=== PATIENT | male | born 1950 | race Caucasian/White ===

== ENCOUNTER → 2017-05-11 | Outpatient (CLI) | payer OTHER ==
[~2017-05-11] MED LIST: CALC500C70 PO; MULT-506 PO; OMEP20TA PO
[2017-05-11 13:32] LABS: BASO % 1.1 %; BASO ABS # 0.06 K/uL (0-0.2); EOS % 6.5 %; EOS ABS # 0.37 K/uL (0-0.5); HEMATOCRIT 41.6 % (42-52); HEMOGLOBIN 14.7 g/dL (14.0-18.0); LYMPH % 25.7 %; LYMPH ABS # 1.45 K/uL (1.2-3.4); MEAN CELL VOLUME 91.6 fL (80-100); MEAN CORPUSCULAR HEMOGLOBIN 32.4 pg (25-34); MEAN CORPUSCULAR HGB CONC 35.3 g/dl (32-36); MEAN PLATELET VOLUME 9.7 fL (7.4-10.4); MONO % 10.6 %; NEUT % 56.1 %; NEUT ABS # 3.17 K/uL (1.4-6.5); PLATELET COUNT 199 K/uL (130-400); RED CELL DISTRIBUTION WIDTH CV 13.2 % (11.5-14.5); RED CELL DISTRIBUTION WIDTH SD 43.7 fL (36.4-46.3); WHITE BLOOD COUNT 5.65 K/uL (4.8-10.8)
[2017-05-11 14:03] LABS: ALT/SGPT 32 U/L (12-78); BLOOD UREA NITROGEN 16 mg/dl (7-18); CALCIUM 8.8 mg/dl (8.5-10.1); CARBON DIOXIDE 28 mmol/L (21-32); CHOLESTEROL 182 mg/dl (0-200); CREATININE 0.85 mg/dl (0.60-1.40); GLUCOSE 90 mg/dl (70-99); SODIUM 140 mmol/L (136-145)
[2017-05-11 14:07] LABS: ALKALINE PHOSPHATASE 101 U/L (45-117); AST/SGOT 23 U/L (15-37); LDL CHOLESTEROL CALCULATED 105 mg/dl; TOTAL PROTEIN 7.2 gm/dl (6.4-8.2)
== END | disposition home or self-care (01) ==
LOC: C.LABSPEC 13:19
PROVIDERS: ATTEND Family Medicine
DX: E78.2 Mixed hyperlipidemia (principal); K22.70 Barrett's esophagus without dysplasia; R53.83 Other fatigue; M50.33 Other cervical disc degeneration, cervicothoracic region; Z86.19 Personal history of other infectious and parasitic diseases

== ENCOUNTER 2021-08-08 05:04 | Observation (INO) ==
--- NOTE | 2021-07-19 15:08 | PAT Medication Instructions ---
Medication Instructions Date of Service July 19, 2021 Home Medications Medication Instructions Recorded aspirin 81 mg tablet,delayed 81 mg PO BID #60 tab 11/15/18 release calcium carbonate 600 mg-vitamin D3 5 mcg (200 unit) capsule (Calcium 600 + D(3)) 1 cap PO QAM multivitamin 1 tab PO QAM omeprazole 20 mg capsule,delayed release 40 mg PO QAM aspirin 81 mg tablet,delayed release 81 mg PO BID Continue as directed aspirin 81 mg tablet,delayed release 81 mg PO BID (unless directed otherwise by surgeon) DO NOT take the morning of surgery calcium carbonate 600 mg-vitamin D3 5 mcg (200 unit) capsule (Calcium 600 + D(3)) 1 cap PO QAM multivitamin 1 tab PO QAM Take morning of surgery With a small sip of water, OTHERWISE NOTHING TO EAT OR DRINK AFTER MIDNIGHT: omeprazole 20 mg capsule,delayed release 40 mg PO QAM Other Notes If you have any questions please call us at [phone] or [phone] or [phone] or [phone]
--- NOTE | 2021-07-22 10:14 | Anesthesiology Consultation ---
Date of Service July 22, 2021 Assessment & Plan (1) Encounter for pre-operative examination: - failed neuraxial attempts: Pt reports neuraxial anesthesia attempted at [facility] 01/2021 for left TKA however failed d/t lumbar fusions/hardware and surgery proceed with GA. - anesthesia record L TKA 02/08/2021 [facility]: Barba #2, ETT#8. Grade 1 view. Pt reports neuraxial anesthesia attempts unsuccessful, thought PNB also unsuccessful however records indicate PNB completed. Pt denies complications. - Outpatient joint pathway: Per surgeon and patient, plan for outpatient joint program. Upon review of chart- patient is an acceptable candidate for [facility] Day [facility] Program from anesthesia perspective pending perioperative course. Pending patient is motivated, has good support and surgeon's office completes Same Day Joint Program preop requirements- patient may proceed with outpatient TKA. - COVID screening: Per assessment on 07/22/2021: Travel screen negative, no known COVID-19 positive contacts or current COVID-19 related symptoms in past 2 weeks. Surgeon arranging preop COVID testing, scheduled 08/04/2021. Awaiting results. Chart Review Chart Review: Acceptable Risk for Surgery and Patient seen in Pre Admission Testing Teaching & Discussion Pre-Anesthesia Teaching/Discussion Notes: Instructed NPO after midnight before surgery, except medications with 15 cc of water. Medication instructions provided according to the PAT guidelines. History Surgery Operation Date: 08/08/21 08:25 Proposed Procedures p OP: Right Total Knee Arthroplasty - José Miguel Boyce MD Height/Weight Height: 5 ft 8 in Weight: 85.3 kg Allergies Allergy/AdvReac Type Severity Reaction Status Date / Time No Known Allergies Allergy Verified 07/19/21 13:16 Medications Home Medications Medication Instructions Recorded Confirmed Last Taken calcium carbonate 600 mg-vitamin 1 cap PO QAM 10/08/18 07/19/21 11/10/18 D3 5 mcg (200 unit) capsule (Calcium 600 + D(3)) multivitamin 1 tab PO QAM 10/08/18 07/19/21 11/10/18 omeprazole 20 mg capsule,delayed 40 mg PO QAM 10/08/18 07/19/21 11/14/18 08:00 release aspirin 81 mg tablet,delayed 81 mg PO BID #60 tab 11/15/18 07/19/21 Unknown release Past Medical History Medical History (Updated 07/22/21 @ 10:30 by Marlen Grace PA-C) Arthritis Barretts esophagus GERD (gastroesophageal reflux disease) controlled, stable per pt Hiatal hernia History of kidney stones Lung nodules "minimal pleural nodularity appears physiologic, interval resolution of parenchymal nodules or likely inflammatory-chest CT 07/2021 Patient denies h/o stroke, seizures, heart attack, heart failure, DM, HTN, blood clots or blood transfusions. Exercise / Class Metabolic Activity II 4-5 Yardwork/Stairs/Walk up hill (denies CP or SOB with 1 FOS) Past Surgical History Surgical History (Updated 07/22/21 @ 10:33 by Marlen Grace PA-C) Fusion of spine X 4-LUMBAR H/O neck surgery hardware History of arthroscopy R/L KNEES History of carpal tunnel release LEFT History of colonoscopy History of esophagogastroduodenoscopy (EGD) History of surgery RIGHT foot 11/15/2018: LMA#5 + PNB. No postop issues. Status post left knee replacement 02/08/2021 [facility]: Barba #2, ETT#8. Grade 1 view. Pt reports neuraxial anesthesia attempts unsuccessful, thought PNB also unsuccessful however records indicate PNB completed. Pt denies complications. Past Anesthesia History No Hx of Anesthesia Complications and No Family Hx of Anesthesia Complications History of PONV No Hx of PONV and No Hx of Motion Sickness Social History Smoking Status: Former smoker tobacco type: cigarettes Do You Dip or Chew Tobacco: No Smoking End Date: 1974 Hx Alcohol Use: No Hx Substance Use: No substance use type: does not use Review of Systems Occasional snoring, denies witnessed apneas or sleep studies. Patient denies chest pain, shortness of breath, dyspnea on exertion, fever, chills, cough, wheezing, or palpitations. Physical Exam Vital Signs Vitals BP 122/69 P 66 TEMP SP02 96% on RA RESP 16 Physical Full cervical extension range of motion without pain Full TMJ range of motion TMD 3 finger breaths Mallampati Score 3 Dentition: intact, Lungs: normal respiratory effort. Clear throughout to auscultation, no adventitious breath sounds Cardiac: regular rate and rhythm, no murmurs noted Carotid arteries: negative bruit bilat Extremities: no distal extremity edema Lab Results Anesthesia Preop Results Results Anesthesia Widget: WBC 5.35 K/uL (4.8-10.8) 07/22/21 Hgb 14.9 g/dL (14.0-18.0) 07/22/21 Hct 44.0 % (42-52) 07/22/21 Plt 262 K/uL (130-400) 07/22/21 Na 140 mmol/L (136-145) 07/22/21 K 3.8 mmol/L (3.5-5.1) 07/22/21 Cl 105 mmol/L (98-107) 07/22/21 CO2 29 mmol/L (21-32) 07/22/21 BUN 11 mg/dl (6-23) 07/22/21 Creat 0.76 mg/dl (0.6-1.4) 07/22/21 Glucose Level 94 mg/dl (70-99(Fasting)) 07/22/21 PT 10.7 Seconds (9.0-12.0) 07/22/21 PTT 25.2 Seconds (21.0-31.0) 07/22/21 INR 1.0 (0.9-1.1) 07/22/21 HA1c 5.3 % (4.5-5.6) 07/22/21 Urine Color Yellow 07/22/21 Urine Appearance Clear (Clear) 07/22/21 Urine pH 6.5 (4.5-7.5) 07/22/21 Urine Specific [place] 1.006 (1.000-1.030) 07/22/21 Urine Protein Negative (Negative) 07/22/21 Urine Glucose (UA) Negative (Negative) 07/22/21 Urine Ketones Negative (Negative) 07/22/21 Urine Blood Negative (Negative) 07/22/21 Urine Nitrite Negative (Negative) 07/22/21 Urine Bilirubin Negative (Negative) 07/22/21 Urine Urobilinogen Negative (Negative) 07/22/21 Urine Leukocyte Esterase Negative (Negative) 07/22/21 Blood Type AB Positive 07/22/21 Antibody Screen NEGATIVE 07/22/21 Testing Electrocardiogram Date: 01/21/21 Sinus bradycardia, rate 53 bpm RBBB Other Testing Chest CT 07/19/2021 Subpleural nodules are stable Coronary artery calficiations Thoracic spondylosis Laminectomy with posterior osseous fusion and pedicle screw with jo fixation partially visualized T12 L1 and L2, extending caudal below the extent of the examination Interval resolution of parenchymal nodules or likely inflammatory Minimal pleural nodularity appears physiologic
--- NOTE | 2021-08-07 10:27 | History & Physical Report ---
Date of Service August 07, 2021 Assessment & Plan (1) Primary osteoarthritis of right knee: Plan: Treatment options discussed with the patient. He is measures. He has continued symptoms and difficulty with daily activities. Chief complaint is pain and instability with ligamentous laxity. He has moderate arthritic change in his knee. Surgical intervention discussed. Discussed proceeding with knee replacement. Risks, benefits and alternatives to surgery including but not limited to infection, DVT, pain, stiffness, need for revision surgery, damage to blood vessels, damage to nerves, PE, , were discussed with the patient and they wish to proceed. Plan for right total knee arthroplasty scheduled for August 08, 2021 at [facility] with Dr. Boyce. We will plan on home health PT postop. We will plan on aspirin 81 mg twice daily for 1 month for DVT prophylaxis. All questions answered. Will follow postop. (2) Instability of right knee joint: History of Present Illness Chief Complaint: Right knee pain and instability Primary Care Provider: Fernando Peterson DO 70-year-old male with past medical history significant for GERD and Mendez's esophagus presents with ongoing right knee pain and instability. He has failed conservative measures. His symptoms are interfering with his daily activities. He would like to proceed with surgical intervention. Patient denies headaches, sweats, fevers, chills, double vision, blurred vision, cough, sore throat, dysphagia, chest pain, sob, wheezing, n/v/d/c, numbness, tingling, fatigue, urinary symptoms, mood disorders. ROS positive for right knee pain and instability. Allergies Allergy/AdvReac Type Severity Reaction Status Date / Time No Known Allergies Allergy Verified 07/19/21 13:16 Home Medications Medication Instructions Recorded Confirmed Type calcium carbonate 600 mg-vitamin 1 cap PO QAM 10/08/18 07/19/21 History D3 5 mcg (200 unit) capsule (Calcium 600 + D(3)) multivitamin 1 tab PO QAM 10/08/18 07/19/21 History omeprazole 20 mg capsule,delayed 40 mg PO QAM 10/08/18 07/19/21 History release aspirin 81 mg tablet,delayed 81 mg PO BID #60 tab 11/15/18 07/19/21 Rx release Past Med/Surg History Medical History (Updated 08/07/21 @ 10:25 by Jack Da Silva PA-C) Arthritis Barretts esophagus GERD (gastroesophageal reflux disease) controlled, stable per pt Hiatal hernia History of kidney stones Lung nodules "minimal pleural nodularity appears physiologic, interval resolution of parenchymal nodules or likely inflammatory-chest CT 07/2021 Surgical History (Updated 07/22/21 @ 10:33 by Marlen Grace PA-C) Fusion of spine X 4-LUMBAR H/O neck surgery hardware History of arthroscopy R/L KNEES History of carpal tunnel release LEFT History of colonoscopy History of esophagogastroduodenoscopy (EGD) History of surgery RIGHT foot 11/15/2018: LMA#5 + PNB. No postop issues. Status post left knee replacement 02/08/2021 [facility]: Barba #2, ETT#8. Grade 1 view. Pt reports neuraxial anesthesia attempts unsuccessful, thought PNB also unsuccessful however records indicate PNB completed. Pt denies complications. Social History Smoking Status: Former smoker Second Hand Exposure: No; Hx Alcohol Use: No Hx Substance Use: No Preferred Language: Chinese Communication Ability: Effective Internet Sales Consultant Required: No Beliefs That Will Affect Care: None Current Living Situation: Spouse Feels Safe at Home: Yes Assistive Devices: Glasses Review of Systems All systems reviewed & are unremarkable except as noted in HPI & below Physical Exam Constitutional: well developed and well nourished; no acute distress Eyes: PERRL, conjunctivae normal, anicteric sclerae ENMT: external ear and nose normal, oropharynx normal Neck: trachea midline, no thyromegaly Respiratory: normal respiratory effort, lungs clear to auscultation Cardiovascular: RRR, no murmur, no edema Musculoskeletal: Right knee: Active painful range of motion. Range of motion 5 to 115 degrees. Depression. He has mild joint effusion. Tenderness medial joint line. Is positive London's, positive Dave's, positive anterior posterior drawer test. Stable valgus varus stress. Skin: no rashes, warm and dry Neurologic: patellar DTR's 2+ bilat, sensation intact Psychiatric: A+Ox3, euthymic affect Results & Data ([facility]) Diagnostic Findings Right knee radiographs demonstrate tricompartmental degenerative changes with mild to moderate joint space narrowing medial compartment. MRI of his knee demonstrates moderate medial compartment arthritis. He has a large medial meniscus tear as well as tears of his ACL and PCL.
[2021-08-08] MEDS ORDERED: METOCLOPRAMIDE HCL 10 MG TABLET PO SCH (06:00)
[2021-08-08] MEDS ORDERED: TRANEXAMIC ACID 1,000 MG **IV Intra-op IV SCH (06:00)
[2021-08-08] MEDS ORDERED: FAMOTIDINE 20 MG TAB PO SCH (06:00)
[2021-08-08] MEDS ORDERED: GABAPENTIN 300 MG CAP PO SCH (06:00)
[2021-08-08] MEDS ORDERED: ACETAMINOPHEN 500 MG TAB PO SCH (06:00)
[2021-08-08] MEDS ORDERED: ceFAZolin 2000MG 2,000 MG/15 ML SYR IV SCH (06:00)
[2021-08-08] MEDS ORDERED: ROPIVACAINE 0.5% HCL/PF 150 MG, BUPIVACAINE 0.75% MPF 20 ML, EPINEPHrine 30MG/30ML (OR ... INSTIL SCH (06:00)
[2021-08-08] MEDS ORDERED: dexAMETHasone 4 MG TAB PO SCH (06:00)
[2021-08-08] MEDS ORDERED: CeleBREX 200 MG CAP PO SCH (06:00)
[2021-08-08] MEDS ORDERED: TRANEXAMIC ACID 1,000 MG **IV Pre-op IV SCH (06:00)
[2021-08-08] MEDS ORDERED: LR 500ML BOLUS, THEN 15ML/HR IV SCH (06:00)
[2021-08-08] MEDS ORDERED: LIDOCAINE 2%/EPINEPHRINE 1:200,000 20 ML SDV ONE (06:18)
[2021-08-08] MEDS ORDERED: BUPIVACAINE 0.25% 30 ML VIAL ONE (06:18)
[2021-08-08] MEDS ORDERED: KETAMINE 50 MG/5 ML SYRINGE ONE (06:26)
[2021-08-08] MEDS ORDERED: MIDAZOLAM HCL 1 MG/ML 2ML VIAL ONE (06:26)
[2021-08-08] MEDS ORDERED: ePHEDrine sulfate 50 MG/ML AMP IV PRN ×2 (06:50→06:57)
[2021-08-08] MEDS ORDERED: ATROPINE SULFATE 0.1 MG/ML 10ML SYR IV PRN ×2 (06:50→06:57)
[2021-08-08] MEDS ORDERED: ONDANSETRON INJ 2 MG/ML 2 ML VIAL IV PRN ×3 (06:50→09:52)
[2021-08-08] MEDS ORDERED: fentaNYL citrate 100 MCG/2 ML VIAL IV PRN ×2 (06:57→10:01)
[2021-08-08] MEDS ORDERED: ORTHO JOINT ANESTHETIC ONE (07:00)
--- NOTE | 2021-08-08 07:10 | History & Physical Bridge Note ---
Date of Service August 08, 2021 History & Physical Bridge Note I have examined the patient, reviewed the History & Physical and in the interval since the performance of the History & Physical I have noted the following changes of clinical significance: no changes noted
[2021-08-08] MEDS ORDERED: fentaNYL citrate 100 MCG/2 ML VIAL ONE ×2 (07:25→08:00)
[2021-08-08] MEDS ORDERED: PROPOFOL IV EMULSION 10 MG/ML 20 ML VIAL IV ONE (07:53)
[2021-08-08] MEDS ORDERED: ONDANSETRON INJ 2 MG/ML 2 ML VIAL ONE (07:53)
[2021-08-08] MEDS ORDERED: LIDOCAINE 2% 2 ML VIAL/AMP(20MG/ML) INFIL ONE (07:53)
[2021-08-08] MEDS ORDERED: DEXAMETHASONE SOD INJ 4 MG/ML VIAL ONE (07:53)
[2021-08-08] MEDS ORDERED: KETOROLAC 30 MG/ML VIAL ONE (07:53)
[2021-08-08] MEDS ORDERED: GLYCOPYRROLATE 0.2 MG/ML VIAL ONE (07:53)
[2021-08-08] MEDS ORDERED: METOCLOPRAMIDE HCL INJ 5 MG/ML 2 ML VIAL IV PRN (09:52)
[2021-08-08] MEDS ORDERED: bisacodyL 10 MG SUPP PR PRN (09:52)
[2021-08-08] MEDS ORDERED: MAGNESIUM HYDROXIDE SUSP 30 ML UDC PO PRN (09:52)
[2021-08-08] MEDS ORDERED: NALOXONE HCL 0.4 MG/1 ML VIAL/CARP IV PRN (09:52)
[2021-08-08] MEDS: fentaNYL citrate 100 MCG/2 ML VIAL IV PRN ×2 (09:55→10:05)
--- NOTE | 2021-08-08 09:59 | Post Operative Brief Note ---
Immediate Post Op Note v1 Date of Surgery August 08, 2021 Pre & Post Diagnosis Operation Date: 08/08/21 07:15 Pre-Op Diagnosis: Right Knee Osteoarthritis, knee instability, anterior and posterior crucial ligament tears, medial meniscus tear, loose body Post-Op Diagnosis: Right Knee Osteoarthritis, knee instability, anterior posterior crucial human tears, medial meniscus tear, loose body, osteopenia possible osteoporosis. I identified the patient and participated in the time-out.: Yes Procedure Operation Date: 08/08/21 07:15 Actual Procedures p Right Total Knee Arthroplasty(Right) - José Miguel Boyce MD Surgeon José Miguel Boyce MD Health Promotion Specialist Yakov ADAME Estimated Blood Loss 5 Findings Consistent with Post-Op Diagnosis Specimens Bone cuts Drains Hemovac Drain Anesthesia Type General Regional Complications none Disposition Accompanied Patient To Recovery: No Disposition: Recovery Room Overlapping Procedure I was immediately available: during the entire case.
[2021-08-08] MEDS ORDERED: HYDROmorphone INJ 0.5 MG/0.5 ML SYR IV PRN (10:03)
[2021-08-08] MEDS ORDERED: HYDROmorphone INJ 1 MG/ML SYRINGE ONE (10:08)
--- NOTE | 2021-08-08 10:32 | XRay Report ---
RIGHT KNEE 2 VIEWS History: Right total knee arthroplasty. Degenerative arthritis. Postop. FINDINGS: The patient is status post a right total knee arthroplasty. The hardware is intact. No frac ture or dislocation. Skin alvaro and surgical drains are in place. IMPRESSION: Right total knee arthroplasty. No evidence for hardware complication. ACT 112: Negative or not required by law. Electronically signed by: Joseph Handy M.D. 08/08/2021 10:31 AM
--- NOTE | 2021-08-08 10:41 | Operative Report ---
Post Operative Report Pre & Post Diagnosis Operation Date: 08/08/21 07:15 Pre-Op Diagnosis: Right Knee Osteoarthritis, knee instability, ACL tear, PCL tear, medial meniscus tear, loose body, leg length discrepancy right leg shorter than left. Post-Op Diagnosis: Right Knee Osteoarthritis, knee instability, ACL tear, PCL tear, medial meniscus tear, loose body, osteopenia possible osteoporosis, leg length discrepancy right leg shorter than left. I identified the patient and participated in the time-out.: Yes Procedure Operation Date: 08/08/21 07:15 Actual Procedures p Right Total Knee Arthroplasty(Right) - José Miguel Boyce MD Surgeon José Miguel Boyce MD Warehouse Consultant Yakov ADAME Estimated Blood Loss 5 Findings Consistent with Post-Op Diagnosis Specimens Bone cuts Drains 2 Hemovac Anesthesia Type General Regional Complications none Indications 70-year-old male with right knee pain. Patient worked up with x-rays and MRI demonstrating moderate osteoarthritis patellofemoral joint medial compartment with MRI demonstrating a chronic ACL tear complete chronic PCL tear at least partial possible complete with complex medial meniscus tear. Patient has both instability and pain. Description of Procedure Patient taken to the operating room the size under spinal MAC regional block anesthesia. Patient was placed supine on the operating table. A pneumatic tourniquet was placed about the right upper thigh. The right lower extremity was prepped and draped in sterile fashion. Knee exam demonstrated range of motion 5 through 115 degrees with positive London exam no endpoint positive pivot shift 1+, 2+ PCL laxity. There is significant leg length shortening of the right leg compared to the left. The leg was elevated exsanguinated with an Esmarch bandage and pneumatic tourniquet was raised to 300 millimeters of mercury. Skin incised sharply in longitudinal fashion. Subcutaneous flaps elevated. Incision was made through the medial retinaculum extending up in the mid third of the quadriceps tendon and down to the medial tibial tubercle. Intra-articular findings demonstrated moderate patellofemoral medial compartment osteoarthritis with grade 3 OA medial compartment. There was a loose body anteriorly affecting some of the knee extension and a complete ACL tear and partial tear and thickening of the PCL with the cyst posterior to the PCL. There is a chronic complex medial meniscus tear. The MyDentistn total knee arthroplasty system was used. To expose the knee the infrapatellar fat pad was resected. The loose body was removed. The meniscal remnants and anterior cruciate ligament remnants and the posterior cruciate ligament were resected. The anterior fat pad over the femur in the area of the anterior flange of the femoral component was resected. Lateral synovial bands release. The femur was exposed. An intramedullary drill hole was made into the canal. A guide jo was placed. Distal femoral cutting guide was adjusted to resect a 5 degree valgus cut with 8 millimeters distal femur resected. The knee was extended and a subperiosteal peel lateral release was performed around the patella. Patella width was measured and width was reproduced using a freehand cut technique and a 36 symmetrical patella component. Patella width after cut was 16 mm. The 3 drill holes were made and the excess lateral facet was beveled off to prevent any impingement. Attention was taken back to the femur which was exposed with retractors and the femoral sizing guide was pinned in position. The drill holes were placed in 3 of external rotation to match epicondylar axis. Femur sized for a 6 component. The 4-in-1 cutting block was placed and then the anterior posterior and chamfer cuts are made. Was noted that the patient did have osteopenia with soft bones during the cuts. The tibia was then subluxed. The external tibial cutting guide was just to make a perpendicular cut to the long axis of the tibia below the most deficient bone loss side. A lamina sleeve maker was used and the flexion extension gaps were balanced. No releases were required. All posterior osteophytes removed. All meniscal remnants were resected. The tibia exposed and the trial tibial component size 6 was externally rotated in line with the tibial tubercle and pinned in position. The drill and punch for stem was used. The notch cutting device was centered appropriately and the femoral notch cut was made. The femoral trial was inserted. Trial tibial inserts were placed and size 9 gave balanced ligaments through flexion and extension. Patella tracking was assessed. The patella tracked centrally. The trial components were then removed and the orthomix anesthetic cocktail was injected per protocol. The knee was then copiously irrigated with pulsatile lavage antibiotic solution. Final components were then cemented with Simplex cement. Final components were triathlon right posterior stabilized size 6 femur, size 6 tibial universal baseplate, 9 x 6 X.3 polyethylene tibial posterior stabilized implant, x3 polyethylene 36 x 10 symmetrical patella while the cement cured the Betadine soak was used per protocol. After cement cured further pulsatile lavage irrigation performed and 2 Hemovac drains were brought out laterally. The quadriceps tendon and medial retinaculum were closed with figure of 8 #1 Vicryl sutures. The knee was taken through full range of motion and the repair was secure. Knee motion was 0 through 130. The subcutaneous tissues were closed with 2-0 Vicryl sutures. Skin was closed with alvaro. Silverlon sterile dressing was applied. Patient procedure well. Yakov ADAME was my physician construction project assistant who assisted in patient positioning prepping and draping,leg positioning ,soft tissue retraction and instrument management and participated in the closing and will participate in postoperative care of the patient. The patient tolerated the procedure well. I attest to the content of the Intraoperative Record and any orders documented therein. Any exceptions are noted below.
[2021-08-08] MEDS ORDERED: TAMSULOSIN HCL 0.4 MG CAP PO PRN (11:22)
[2021-08-08] MEDS: SODIUM CHLORIDE 0.9% 1000ML 1,000 ML IV SCH ×2 (11:47→21:30)
--- NOTE | 2021-08-08 12:19 | Consultation ---
Date of Consultation August 08, 2021 Assessment & Plan (1) Primary osteoarthritis of right knee: (2) Barretts esophagus: Right knee primary osteoarthritis S/P R TKA by Dr. Boyce, POD #0 EBL 5ml Pain/wound management per orthopedic Activity and therapy at discretion of orthopedics Encourage incentive spirometry and wean oxygen as able Monitor drainage from blood loss, preop hemoglobin 14 bowel regimen per ortho Mendez's esophagus Hiatal hernia GERD Continue PPI DVT prophylaxis: ASA twice daily per Ortho Dispo: per primary PCP: Yolanda Couch PA-C FULL CODE Pt was seen and examined by Dr. Smith, please see addendum Starting 08/09/21 pt will be followed by Dr. Suárez Thank you for this consultation. We will follow the patient with you during their hospital stay. You can reach a member of the [facility] Hospitalist Team 11/12 via hospitalist role on tiger text. Supervising Physician Co-Signing Physician Notes I have seen and examined the patient and have discussed the case with the provider above. I agree with the assessment and plan as stated. 70 yo M s/p R TXA today by Dr. Boyce. He is doing well post-operatively, denying chest pain, nausea, SOB. Pain is well controlled with current medications. Right leg wrapped, and surgical site note able to be visualized. Ice in place. WNWD man in NAD, lungs are clear to auscultation throughout, cardiac exam reveals S1/2 with no m/g/r. Abdomen is soft, NTND. Legs are warm and well perfused. Cont current post-operative care. All medications were reviewed. DO Luis History of Present Illness Requesting Physician: Postop medical management Reason for Consultation: Postop medical management Attending Physician: José Miguel Boyce MD History of Present Illness This is a 70-year-old male who has significant past medical history of Mendez's esophagus on PPI, history of urinary calculi, diet- controlled HLD, history of left TKA, history of neck and multiple back surgeries who presents for elective right TKA. He has been admitted to medical floor for postop pain control. We have been consulted for medical management. Currently patient complains of right knee pain, 5 out of 10. Denies any numbness or tingling. He is eating lunch. He denies any fever, chills, sweats, lightheadedness, dizziness, chest pain, shortness of breath, cough, nausea, vomiting, abdominal pain, change in bowel or urinary habits. He is a former history of smoking, but no current tobacco use. He denies any alcohol use. He did have his left knee replaced in January without complication. Patient's medical record in [facility] was reviewed. He last had EGD 04/13/2021 which read small hiatal hernia and esophageal mucosal changes consistent with Mnedez's. He has been compliant with PPI. Allergies Allergy/AdvReac Type Severity Reaction Status Date / Time No Known Allergies Allergy Verified 07/19/21 13:16 Home Medications Medication Instructions Recorded Confirmed Type calcium carbonate 600 mg-vitamin 1 cap PO QAM 10/08/18 08/08/21 History D3 5 mcg (200 unit) capsule (Calcium 600 + D(3)) multivitamin 1 tab PO QAM 10/08/18 08/08/21 History omeprazole 20 mg capsule,delayed 40 mg PO QAM 10/08/18 08/08/21 History release aspirin 81 mg tablet,delayed 81 mg PO BID #60 tab 11/15/18 08/08/21 Rx release acetaminophen 500 mg tablet 1,000 mg PO Q8 #60 tab 08/08/21 Rx (Tylenol Extra Strength) aspirin 81 mg tablet,delayed 81 mg PO BID #60 tab 08/08/21 Rx release cefadroxil 500 mg capsule 500 mg PO BID #28 cap 08/08/21 Rx celecoxib 200 mg capsule (Celebrex) 200 mg PO BID #60 cap 08/08/21 Rx ondansetron HCl 4 mg tablet 4 mg PO Q8H PRN #20 tab 08/08/21 Rx oxycodone 5 mg tablet 5 - 10 mg PO .Q4h-6h PRN #30 tab 08/08/21 Rx MDD 6 Patient History Medical History (Updated 08/08/21 @ 12:31 by Analy Cruz PA-C) Arthritis Barretts esophagus GERD (gastroesophageal reflux disease) controlled, stable per pt Hiatal hernia History of kidney stones Lung nodules "minimal pleural nodularity appears physiologic, interval resolution of parenchymal nodules or likely inflammatory-chest CT 07/2021 Surgical History Fusion of spine X 4-LUMBAR H/O neck surgery hardware History of arthroscopy R/L KNEES History of carpal tunnel release LEFT History of colonoscopy History of esophagogastroduodenoscopy (EGD) History of surgery RIGHT foot 11/15/2018: LMA#5 + PNB. No postop issues. Status post left knee replacement 02/08/2021 [facility] [place]: Barba #2, ETT#8. Grade 1 view. Pt reports neuraxial anesthesia attempts unsuccessful, thought PNB also unsuccessful however records indicate PNB completed. Pt denies complications. Family History Denies family history of Heart disease Social History Smoking Status: Former smoker Smoking End Date: 1974; Second Hand Exposure: No; Do You Dip or Chew Tobacco: No; Hx Alcohol Use: No Hx Substance Use: No Preferred Language: Kenyan Communication Ability: Effective Auxiliary Operator Required: No Beliefs That Will Affect Care: None Current Living Situation: Spouse Other Information That Helps Us Care for You: No Feels Safe at Home: Yes Assistive Devices: Walker Review of Systems Review of Systems: All systems reviewed & are unremarkable except as noted in HPI & below Physical Exam Physical Exam: Constitutional: WD/WN, vitals as above, NAD, appears in pain, sitting up in bed, conversing easily Head: Normocephalic, Atraumatic Eyes: PERRL, conjunctivae normal, anicteric sclerae ENMT: external ear and nose normal, oropharynx normal Neck: trachea midline, no thyromegaly normal visual inspection Respiratory: On 2 L of O2 via NC normal respiratory effort, lungs clear to auscultation, no wheeze, rales, rhonchi. Normal insp/exp effort, no accessory muscle use Cardiovascular: RRR, no murmur, no edema Vessels: no JVD or carotid bruit Chest: normal inspection of chest Abdomen: normal bowel sounds, soft, nontender, no hepatosplenomegaly Musculoskeletal: no cyanosis or clubbing, right knee dressing CDI, ice in place, NVI distally Skin: no rashes, warm and dry normal turgor Neurologic: PERRL, EOMI, accommodation nl, no face palsy, no dysarthria CN's II-XI intact bilaterally and moves all extremities Psychiatric: A+Ox3, euthymic affect Lymphatic: no cervical or axillary lymphadenopathy : deferred Results & Data ([facility]) Vital Signs (Past 12 Hours) Vital Signs Temp Pulse Pulse Pulse Resp BP Pulse Ox 08/08/21 12:16 36.4 C L 77 16 128/77 96 08/08/21 11:46 36.4 C L 91 H 18 117/73 99 08/08/21 11:15 36.9 C 84 18 145/79 H 96 08/08/21 11:00 36.2 C L 68 13 124/65 92 08/08/21 10:50 70 10 L 117/65 94 08/08/21 10:40 80 13 126/70 94 08/08/21 10:30 90 22 133/78 97 08/08/21 10:20 87 13 139/89 95 08/08/21 10:10 90 14 144/97 H 94 08/08/21 10:00 84 19 140/100 94 08/08/21 09:52 36.0 C L 87 17 123/91 94 08/08/21 05:39 36.7 C 67 16 140/90 97 Laboratory Results Preop labs on 07/22/2021 BC: WBC 5.35, H&H 14.9 and 44.0, platelet 262 INR 1.0 BMP reviewed unremarkable, creatinine 0.76, A1c 5.3 Urinalysis negative Diagnostic Findings CT scan of chest 07/19/2021 reviewed Medications Administered Current Inpatient Medications Acetaminophen (Acetaminophen 500 Mg Tab) 1,000 mg PO PREOP VITALY Stop: 08/08/21 18:00 Last Admin: 08/08/21 06:10 Dose: 1,000 mg Documented by: Acetaminophen (Acetaminophen 500 Mg Tab) 1,000 mg PO Q8 VITALY Stop: 09/07/21 13:59 Aspirin (Aspirin 81 Mg Ectab) 81 mg PO BID VITALY Stop: 09/07/21 20:59 Atropine Sulfate (Atropine Sulfate 0.1 Mg/Ml 10ml Syr) 0.5 mg IV Q1M PRN PRN Reason: PACU Use-HR<40 &/or Bradycardi Stop: 08/08/21 14:57 Bisacodyl (Bisacodyl 10 Mg Supp) 10 mg [place] DAILY PRN PRN Reason: Constipation Stop: 09/07/21 09:51 Celecoxib (Celebrex 200 Mg Cap) 200 mg PO PREOP [facility]ITALY Stop: 08/08/21 18:00 Last Admin: 08/08/21 06:09 Dose: 200 mg Documented by: Celecoxib (Celebrex 200 Mg Cap) 200 mg PO BID VITALY Stop: 09/07/21 20:59 Dexamethasone (Dexamethasone 4 Mg Tab) 8 mg PO PREOP VITALY Stop: 08/08/21 18:00 Last Admin: 08/08/21 06:10 Dose: 8 mg Documented by: Docusate Sodium (Docusate Sodium 100 Mg Cap) 100 mg PO BID VITALY Stop: 09/07/21 20:59 Ephedrine Sulfate (Ephedrine Sulfate 50 Mg/Ml Amp) 5 mg IV Q5M PRN PRN Reason: PACU Use Only-SBP<90 mmHg Stop: 08/08/21 14:57 Famotidine (Famotidine 20 Mg Tab) 20 mg PO PREOP VITALY Stop: 08/08/21 18:00 Last Admin: 08/08/21 06:11 Dose: 20 mg Documented by: Fentanyl Citrate (Fentanyl Citrate 100 Mcg/2 Ml Vial) 25 mcg IV Q5M PRN PRN Reason: PACU Use Only-Pain Stop: 08/08/21 14:57 Last Admin: 08/08/21 10:00 Dose: 25 mcg Documented by: Fentanyl Citrate (Fentanyl Citrate 100 Mcg/2 Ml Vial) 50 mcg IV Q5M PRN PRN Reason: Pain Stop: 08/22/21 10:00 Gabapentin (Gabapentin 300 Mg Cap) 300 mg PO PREOP VITALY Stop: 08/08/21 18:00 Last Admin: 08/08/21 06:11 Dose: 300 mg Documented by: Hydromorphone HCl (Hydromorphone Inj 0.5 Mg/0.5 Ml Syr) 0.5 mg IV Q4H PRN PRN Reason: Pain or Pre PT Stop: 08/22/21 09:51 Hydromorphone HCl (Hydromorphone Inj 0.5 Mg/0.5 Ml Syr) 0.5 mg IV Q5M PRN PRN Reason: Pain Stop: 08/22/21 10:02 Lactated Ringer's (Lr) 1,000 mls @ 15 mls/hr IV .Q24H [facility]ITALY Stop: 08/08/21 18:00 Last Infusion: 08/08/21 07:20 Dose: Infused Documented by: Cefazolin Sodium (Ancef 2000mg) 2,000 mg in 15 mls @ 3.75 mls/min IV PREOP [facility]; Protocol Stop: 08/08/21 18:00 Last Admin: 08/08/21 07:20 Dose: 3.75 mls/min Documented by: Tranexamic Acid (Tranexamic Acid / 0.7% Nacl) 1,000 mg in 100 mls @ 600 mls/hr IV TODAY@0600 [facility] Stop: 08/08/21 18:00 Last Infusion: 08/08/21 11:33 Dose: Infused Documented by: Tranexamic Acid (Tranexamic Acid / 0.7% Nacl) 1,000 mg in 100 mls @ 600 mls/hr IV TODAY@0600 [facility] Stop: 08/08/21 18:00 Last Infusion: 08/08/21 11:33 Dose: Infused Documented by: Sodium Chloride (Nss 1000ml) 1,000 mls @ 100 mls/hr IV .Q10H [facility]ITAL[facility] Stop: 08/09/21 06:00 Last Admin: 08/08/21 11:47 Dose: 100 mls/hr Documented by: Cefazolin Sodium (Ancef 2000mg) 2,000 mg in 15 mls @ 3.75 mls/min IV Q8H [facility]; Protocol Stop: 08/09/21 00:33 Magnesium Hydroxide (Magnesium Hydroxide Susp 30 Ml Udc) 30 ml PO Q6H PRN PRN Reason: Constipation Stop: 09/07/21 09:51 Metoclopramide HCl (Metoclopramide Hcl 10 Mg Tablet) 10 mg PO PREOP [facility] Stop: 08/08/21 18:00 Last Admin: 08/08/21 06:11 Dose: 10 mg Documented by: Metoclopramide HCl (Metoclopramide Hcl Inj 5 Mg/Ml 2 Ml Vial) 10 mg IV Q6H PRN PRN Reason: Nausea And Vomiting Stop: 09/07/21 09:51 Multivitamins (Multivitamin Tab) 1 tab PO QAM [facility] Stop: 09/08/21 08:59 Multivitamins/Minerals (Calcium 600mg + Vit D 400 Iu Tab) 1 tab PO QAM [facility] Stop: 09/08/21 08:59 Naloxone HCl (Naloxone Hcl 0.4 Mg/1 Ml Vial/Carp) 0.1 mg IV Q5M PRN PRN Reason: Oversedation/Resp Depression Stop: 09/07/21 09:51 Ondansetron HCl (Ondansetron Inj 2 Mg/Ml 2 Ml Vial) 4 mg IV ONCE PRN PRN Reason: PACU Use Only-Nausea/Vomiting Stop: 08/08/21 14:57 Ondansetron HCl (Ondansetron Inj 2 Mg/Ml 2 Ml Vial) 4 mg IV Q6H PRN PRN Reason: Nausea And Vomiting Stop: 09/07/21 09:51 Oxycodone HCl (Oxycodone Hcl Ir 5 Mg Tab (Immediate Release)) 5 - 10 mg PO Q4H PRN PRN Reason: Pain or Pre PT Stop: 08/22/21 09:51 Last Admin: 08/08/21 12:27 Dose: 10 mg Documented by: Pantoprazole Sodium (Pantoprazole 40 Mg Tab) 40 mg PO QAM [facility] Stop: 09/08/21 08:59 Sennosides (Senna 8.6 Mg Tab) 17.2 mg PO HS [facility] Stop: 09/07/21 20:59 Tamsulosin HCl (Tamsulosin Hcl 0.4 Mg Cap) 0.4 mg PO QAM PRN PRN Reason: UNABLE to void Stop: 09/07/21 11:21 ECG Rate (beats per minute): 53 Rhythm: sinus bradycardia Findings: + RBBB
[2021-08-08] MEDS: oxyCODONE HCL IR 5 MG TAB (IMMEDIATE RELEASE) PO PRN (12:27)
[2021-08-08] MEDS: ACETAMINOPHEN 500 MG TAB PO SCH ×2 (13:57→21:08)
--- NOTE | 2021-08-08 14:19 | Anesthesiology Progress Note ---
Date of Service August 08, 2021 Anesthesia Post Procedure Vital Signs Vital Signs: Temp Pulse Pulse Pulse Resp BP Pulse Ox 08/08/21 13:19 36.6 C 65 16 121/69 97 08/08/21 12:16 36.4 C L 77 16 128/77 96 08/08/21 11:46 36.4 C L 91 H 18 117/73 99 08/08/21 11:15 36.9 C 84 18 145/79 H 96 08/08/21 11:00 36.2 C L 68 13 124/65 92 08/08/21 10:50 70 10 L 117/65 94 08/08/21 10:40 80 13 126/70 94 08/08/21 10:30 90 22 133/78 97 08/08/21 10:20 87 13 139/89 95 08/08/21 10:10 90 14 144/97 H 94 08/08/21 10:00 84 19 140/100 94 08/08/21 09:52 36.0 C L 87 17 123/91 94 08/08/21 05:39 36.7 C 67 16 140/90 97 Pain Intensity Right Knee: Pain Intensity: 6 Transfer of Care Handoff Completed per policy Notes Mental Status: alert / awake / arousable and participated in evaluation Patient Amnestic to Procedure: Yes Nausea / Vomiting: adequately controlled Pain: improving with treatment Airway Patency, RR, SpO2: stable & adequate BP & HR: stable & adequate Hydration State: stable & adequate Anesthetic Complications: no major complications apparent and Pt Satisfied with anesthetic care Notes: Patient was an attempted outpatient joint but was unable to get a spinal block due to multiple prior back surgeries and recent failed spinal attempt x4 at OSH for knee replacement. Patient had considerable amount of postop pain in recovery and surgical team decided to admit overnight for better pain control given that he would likely require IV pain medication.
[2021-08-08] MEDS: HYDROmorphone INJ 0.5 MG/0.5 ML SYR IV PRN ×2 (15:41→20:08)
[2021-08-08] MEDS: ceFAZolin 2000MG 2,000 MG/15 ML SYR IV SCH (15:48)
[2021-08-08] MEDS: DOCUSATE SODIUM 100 MG CAP PO SCH (20:07)
[2021-08-08] MEDS: CeleBREX 200 MG CAP PO SCH (20:07)
[2021-08-08] MEDS: ASPIRIN 81 MG ECTAB PO SCH (20:07)
[2021-08-08] MEDS: SENNA 8.6 MG TAB PO SCH (20:07)
[2021-08-09] MEDS: ceFAZolin 2000MG 2,000 MG/15 ML SYR IV SCH (00:09)
[2021-08-09] MEDS: HYDROmorphone INJ 0.5 MG/0.5 ML SYR IV PRN ×3 (00:15→12:57)
[2021-08-09] MEDS: ACETAMINOPHEN 500 MG TAB PO SCH ×3 (05:27→20:26)
[2021-08-09] MEDS: SODIUM CHLORIDE 0.9% 1000ML 1,000 ML IV SCH (06:16)
[2021-08-09 06:33] LABS: Hematocrit (blood only) 35.5 % (42-52); Hemoglobin 12.3 g/dL (14.0-18.0); Mean Corpuscular Hemoglobin 32.1 pg (25-34); Mean Corpuscular Hgb Conc 34.6 g/dL (32-36); Mean Corpuscular Volume 92.7 fL (80-100); Platelet Count 221 K/uL (130-400); RDW Coefficient of Variation 13.8 % (11.5-14.5); RDW Standard Deviation 46.9 fL (36.4-46.3); Red Blood Count 3.83 M/uL (4.7-6.1); White Blood Count 12.73 K/uL (4.8-10.8)
[2021-08-09 06:47] LABS: BUN Creatinine Ratio 17.2 (10-20); Calcium 8.8 mg/dl (8.5-10.1); Creatinine Clr Calc Pharmacy 82.6 ml/min; Est GFR (African American) 100.6 ml/min; Est GFR (Non-African American) 86.8 ml/min; Potassium 4.2 mmol/L (3.5-5.1)
[2021-08-09] MEDS ORDERED: NON-FORMULARY MEDICATION (Multivitamin Tablet) PO SCH (09:00)
[2021-08-09] MEDS: CALCIUM 600MG + VIT D 400 IU TAB PO SCH (09:07)
[2021-08-09] MEDS: MULTIVITAMIN TAB PO SCH (09:07)
[2021-08-09] MEDS: PANTOprazole 40 MG TAB PO SCH (09:07)
[2021-08-09] MEDS: DOCUSATE SODIUM 100 MG CAP PO SCH ×2 (09:13→20:26)
[2021-08-09] MEDS: oxyCODONE HCL IR 5 MG TAB (IMMEDIATE RELEASE) PO PRN ×3 (09:13→23:21)
--- NOTE | 2021-08-09 10:07 | Orthopedic Progress Note ---
Date of Service August 09, 2021 Assessment & Plan (1) Primary osteoarthritis of right knee: Plan: POD 1 s/p Right TKA PT/OT protocols. WBAT. DVT prophylaxis - ASA bid, SCD's, DENI's Pain management as written. (2) Instability of right knee joint: Admission and Anticipated Discharge Date Admission Date: August 08, 2021 Subjective POD 1 Pt sitting up at bedside. Finished going through his PT session. Pt having some knee pain currently. No other complaints at this time. Physical Exam Physical Exam: Dressings C/D/I. Calves soft, NT. NV intact. Toes mobile. Good DF/PF. HV drainage 250ml from previous shift. Results & Data ([facility]) Vital Signs (Past 12 Hours) Vital Signs Temp Pulse Resp BP Pulse Ox 08/09/21 07:54 36.7 C 62 16 137/76 97 08/09/21 03:38 36.6 C 59 L 16 133/72 96 Laboratory Results Laboratory Results WBC 12.73 K/uL (4.8-10.8) H 08/09/21 06:00 RBC 3.83 M/uL (4.7-6.1) L 08/09/21 06:00 Hgb 12.3 g/dL (14.0-18.0) L 08/09/21 06:00 Hct 35.5 % (42-52) L 08/09/21 06:00 MCV 92.7 fL (80-100) 08/09/21 06:00 MCH 32.1 pg (25-34) 08/09/21 06:00 MCHC 34.6 g/dL (32-36) 08/09/21 06:00 RDW Std Deviation 46.9 fL (36.4-46.3) H 08/09/21 06:00 RDW Coeff of Clarissa 13.8 % (11.5-14.5) 08/09/21 06:00 Plt Count 221 K/uL (130-400) 08/09/21 06:00 MPV 9.0 fL (7.4-10.4) 08/09/21 06:00 Sodium 140 mmol/L (136-145) 08/09/21 06:00 Potassium 4.2 mmol/L (3.5-5.1) 08/09/21 06:00 Chloride 107 mmol/L (98-107) 08/09/21 06:00 Carbon Dioxide 28 mmol/L (21-32) 08/09/21 06:00 Anion Gap 5 (3-11) 08/09/21 06:00 BUN 15 mg/dl (6-23) 08/09/21 06:00 Creatinine 0.87 mg/dl (0.6-1.4) 08/09/21 06:00 Est Cr Clr Drug Dosing 82.6 ml/min 08/09/21 06:00 Est GFR ( Amer) 100.6 ml/min 08/09/21 06:00 Est GFR (Non-Af Amer) 86.8 ml/min 08/09/21 06:00 BUN/Creatinine Ratio 17.2 (10-20) 08/09/21 06:00 Glucose 115 mg/dl (70-99(Fasting)) H 08/09/21 06:00 Calcium 8.8 mg/dl (8.5-10.1) 08/09/21 06:00 Impressions Knee X-Ray 08/08/21 09:54 RIGHT KNEE 2 VIEWS History: Right total knee arthroplasty. Degenerative arthritis. Postop. FINDINGS: The patient is status post a right total knee arthroplasty. The hardware is intact. No fracture or dislocation. Skin alvaro and surgical drains are in place. IMPRESSION: Right total knee arthroplasty. No evidence for hardware complication. ACT 112: Negative or not required by law. Electronically signed by: Joseph Handy M.D. 08/08/2021 10:31 AM
[2021-08-09] MEDS: CeleBREX 200 MG CAP PO SCH ×2 (10:39→20:26)
[2021-08-09] MEDS: ASPIRIN 81 MG ECTAB PO SCH ×2 (10:39→20:27)
[2021-08-09] MEDS: SENNA 8.6 MG TAB PO SCH (20:26)
--- NOTE | 2021-08-09 20:31 | Hospitalist Progress Note ---
Date of Service August 09, 2021 Assessment & Plan (1) Primary osteoarthritis of right knee: (2) Barretts esophagus: Plan: Right knee primary osteoarthritis S/P R TKA by Dr. Boyce, POD #1 EBL 5ml Pain/wound management per orthopedic Activity and therapy at discretion of orthopedics Encourage incentive spirometry and wean oxygen as able Monitor drainage from blood loss, preop hemoglobin 14 bowel regimen per ortho Minimal pain in the right knee joint Otherwise medically stable We will monitor CBC and BMP Mendez's esophagus Hiatal hernia GERD Continue PPI DVT prophylaxis: ASA twice daily per Ortho Dispo: per primary PCP: Yolanda Couch PA-C FULL CODE Medically stable Admission and Anticipated Discharge Date Admission Date: August 08, 2021 Subjective 08/09/21 The patient was seen and examined in medical floor Is a status post right knee arthroplasty Complains of pain in the right knee joint otherwise asymptomatic Review of Systems Review of Systems: All systems reviewed and are unremarkable except as noted below Musculoskeletal: Right knee pain Physical Exam Physical Exam: Lying in bed comfortably Constitutional: well developed, well nourished and + ill appearing Eyes: PERRL, conjunctivae normal, anicteric sclerae ENMT: external ear and nose normal, oropharynx normal Respiratory: no respiratory distress Auscultation: lungs clear to auscultation bilaterally Cardiovascular: Rate/Rhythm: regular rate and regular rhythm; not tachycardic Heart Sounds: normal S1 and normal S2; no murmur Extremities: no edema Gastrointestinal (Abdomen): Inspection/Auscultation: normal bowel sounds; abdomen not distended Percussion/Palpation: abdomen soft; abdomen nontender Musculoskeletal: No acute arthritis in any joint except right knee Neurologic: Alert, awake and oriented x3. No focal sensory and/or motor deficit appreciated Results & Data Results & Data ([facility]) Vital Signs (Past 12 Hours) Vital Signs Temp Pulse Resp BP Pulse Ox 08/09/21 15:30 36.6 C 65 16 145/74 H 97 08/09/21 11:56 36.5 C 58 L 16 122/71 98 Laboratory Results Short CBC 08/09/21 Range/Units 06:00 WBC 12.73 H (4.8-10.8) K/uL Hgb 12.3 L (14.0-18.0) g/dL Hct 35.5 L (42-52) % Plt Count 221 (130-400) K/uL BMP 08/09/21 06:00 Sodium 140 Potassium 4.2 Chloride 107 Carbon Dioxide 28 BUN 15 Creatinine 0.87 Glucose 115 H Calcium 8.8 Medications Administered Current Inpatient Medications Acetaminophen (Acetaminophen 500 Mg Tab) 1,000 mg PO Q8 [facility] Stop: 09/07/21 13:59 Last Admin: 08/09/21 20:26 Dose: 1,000 mg Documented by: Aspirin (Aspirin 81 Mg Ectab) 81 mg PO BID [facility]ITALY Stop: 09/07/21 20:59 Last Admin: 08/09/21 20:27 Dose: 81 mg Documented by: Bisacodyl (Bisacodyl 10 Mg Supp) 10 mg [place] DAILY PRN PRN Reason: Constipation Stop: 09/07/21 09:51 Celecoxib (Celebrex 200 Mg Cap) 200 mg PO BID [facility] Stop: 09/07/21 20:59 Last Admin: 08/09/21 20:26 Dose: 200 mg Documented by: Docusate Sodium (Docusate Sodium 100 Mg Cap) 100 mg PO BID [facility]Y Stop: 09/07/21 20:59 Last Admin: 08/09/21 20:26 Dose: 100 mg Documented by: Fentanyl Citrate (Fentanyl Citrate 100 Mcg/2 Ml Vial) 50 mcg IV Q5M PRN PRN Reason: Pain Stop: 08/22/21 10:00 Hydromorphone HCl (Hydromorphone Inj 0.5 Mg/0.5 Ml Syr) 0.5 mg IV Q4H PRN PRN Reason: Pain or Pre PT Stop: 08/22/21 09:51 Last Admin: 08/09/21 12:57 Dose: 0.5 mg Documented by: Hydromorphone HCl (Hydromorphone Inj 0.5 Mg/0.5 Ml Syr) 0.5 mg IV Q5M PRN PRN Reason: Pain Stop: 08/22/21 10:02 Magnesium Hydroxide (Magnesium Hydroxide Susp 30 Ml Udc) 30 ml PO Q6H PRN PRN Reason: Constipation Stop: 09/07/21 09:51 Metoclopramide HCl (Metoclopramide Hcl Inj 5 Mg/Ml 2 Ml Vial) 10 mg IV Q6H PRN PRN Reason: Nausea And Vomiting Stop: 09/07/21 09:51 Multivitamins (Multivitamin Tab) 1 tab PO QAM [facility] Stop: 09/08/21 08:59 Last Admin: 08/09/21 09:07 Dose: 1 tab Documented by: Multivitamins/Minerals (Calcium 600mg + Vit D 400 Iu Tab) 1 tab PO QAM [facility] Stop: 09/08/21 08:59 Last Admin: 08/09/21 09:07 Dose: 1 tab Documented by: Naloxone HCl (Naloxone Hcl 0.4 Mg/1 Ml Vial/Carp) 0.1 mg IV Q5M PRN PRN Reason: Oversedation/Resp Depression Stop: 09/07/21 09:51 Ondansetron HCl (Ondansetron Inj 2 Mg/Ml 2 Ml Vial) 4 mg IV Q6H PRN PRN Reason: Nausea And Vomiting Stop: 09/07/21 09:51 Last Admin: 08/08/21 17:24 Dose: 4 mg Documented by: Oxycodone HCl (Oxycodone Hcl Ir 5 Mg Tab (Immediate Release)) 5 - 10 mg PO Q4H PRN PRN Reason: Pain or Pre PT Stop: 08/22/21 09:51 Last Admin: 08/09/21 18:02 Dose: 10 mg Documented by: Pantoprazole Sodium (Pantoprazole 40 Mg Tab) 40 mg PO QAM [facility] Stop: 09/08/21 08:59 Last Admin: 08/09/21 09:07 Dose: 40 mg Documented by: Sennosides (Senna 8.6 Mg Tab) 17.2 mg PO [facility] Stop: 09/07/21 20:59 Last Admin: 08/09/21 20:26 Dose: 17.2 mg Documented by: Tamsulosin HCl (Tamsulosin Hcl 0.4 Mg Cap) 0.4 mg PO QAM PRN PRN Reason: UNABLE to void Stop: 09/07/21 11:21
[2021-08-10] MEDS: oxyCODONE HCL IR 5 MG TAB (IMMEDIATE RELEASE) PO PRN ×2 (04:58→11:11)
[2021-08-10] MEDS: ACETAMINOPHEN 500 MG TAB PO SCH (05:28)
[2021-08-10 07:31] LABS: Basophils # (auto) 0.01 K/uL (0-0.2); Basophils % (auto) 0.1 %; Eosinophils # (auto) 0.37 K/uL (0-0.5); Eosinophils % (auto) 5.1 %; Hematocrit (blood only) 33.4 % (42-52); Hemoglobin 11.4 g/dL (14.0-18.0); Immature Granulocytes # (auto) 0.01 K/uL (0.00-0.02); Immature Granulocytes % (auto) 0.1 %; Lymphocytes # (auto) 0.86 K/uL (1.2-3.4); Lymphocytes % (auto) 11.8 %; Mean Corpuscular Hgb Conc 34.1 g/dL (32-36); Mean Corpuscular Volume 93.8 fL (80-100); Mean Platelet Volume 8.8 fL (7.4-10.4); Monocytes # (auto) 1.25 K/uL (0.11-0.59); Monocytes % (auto) 17.2 %; Neutrophils # (auto) 4.76 K/uL (1.4-6.5); Neutrophils % (auto) 65.7 %; Platelet Count 167 K/uL (130-400); RDW Coefficient of Variation 13.8 % (11.5-14.5); RDW Standard Deviation 47.5 fL (36.4-46.3); Red Blood Count 3.56 M/uL (4.7-6.1); White Blood Count 7.26 K/uL (4.8-10.8)
[2021-08-10 07:36] VITALS: BP 124/70; PULSE 62; TEMP 97.7; O2SAT 99
[2021-08-10] MEDS: PANTOprazole 40 MG TAB PO SCH (08:25)
[2021-08-10] MEDS: CeleBREX 200 MG CAP PO SCH (08:25)
[2021-08-10] MEDS: MULTIVITAMIN TAB PO SCH (08:25)
[2021-08-10] MEDS: ASPIRIN 81 MG ECTAB PO SCH (08:25)
[2021-08-10] MEDS: CALCIUM 600MG + VIT D 400 IU TAB PO SCH (08:25)
[2021-08-10 08:27] LABS: BUN Creatinine Ratio 25.3 (10-20); Calcium 8.6 mg/dl (8.5-10.1); Est GFR (African American) 97.9 ml/min; Est GFR (Non-African American) 84.5 ml/min; Potassium 3.9 mmol/L (3.5-5.1)
[2021-08-10] MEDS: DOCUSATE SODIUM 100 MG CAP PO SCH (08:28)
--- NOTE | 2021-08-10 10:40 | Orthopedic Progress Note ---
Date of Service August 10, 2021 Assessment & Plan (1) Primary osteoarthritis of right knee: Plan: POD 1 s/p Right TKA PT/OT protocols. WBAT. DVT prophylaxis - ASA bid, SCD's, DENI's Pain management as written. AM labs-hemoglobin drop to 11.4 from 14 preop this morning acute blood loss anemia due to dilutional effect vs surgical loss/hemovac drain. D/C planning-home with HHPT, plan on discharge today. (2) Instability of right knee joint: Admission and Anticipated Discharge Date Admission Date: August 08, 2021 Subjective Patient is POD2 right TKA. Having pain in his knee but improved from yesterday. No other complaints. Denies chest pain, sob, dizziness, n/v/d, fever, chills. Review of Systems Review of Systems: All systems reviewed & are unremarkable except as noted in Subjective Physical Exam Physical Exam: Right knee Silverlon dressing intac. Mild drainage in window of dressing. Dressing to hemovac site intact with mild bloody drainage on gauze. toes mobile with good dorsiflexion. No calf tenderness. Able to do SLR. Distally n/v status and sensation intact. Constitutional: well developed and well nourished; no acute distress Results & Data ([facility]) Vital Signs (Past 12 Hours) Vital Signs Temp Pulse Resp BP Pulse Ox 08/10/21 07:35 36.5 C 62 16 124/70 99 Diagnostic Findings Lab Results 08/09/21 08/09/21 08/10/21 Range/Units 06:00 06:00 07:17 WBC 12.73 H 7.26 (4.8-10.8) K/uL RBC 3.83 L 3.56 L (4.7-6.1) M/uL Hgb 12.3 L 11.4 L (14.0-18.0) g/dL Hct 35.5 L 33.4 L (42-52) % MCV 92.7 93.8 (80-100) fL MCH 32.1 32.0 (25-34) pg MCHC 34.6 34.1 (32-36) g/dL RDW Std Deviation 46.9 H 47.5 H (36.4-46.3) fL RDW Coeff of Clarissa 13.8 13.8 (11.5-14.5) % Plt Count 221 167 (130-400) K/uL MPV 9.0 8.8 (7.4-10.4) fL Immature Gran % (Auto) 0.1 % Neut % (Auto) 65.7 % Lymph % (Auto) 11.8 % [place] % (Auto) 17.2 % Eos % (Auto) 5.1 % Baso % (Auto) 0.1 % Neut # (Auto) 4.76 (1.4-6.5) K/uL Lymph # (Auto) 0.86 L (1.2-3.4) K/uL [place] # (Auto) 1.25 H (0.11-0.59) K/uL Eos # (Auto) 0.37 (0-0.5) K/uL Baso # (Auto) 0.01 (0-0.2) K/uL Immature Gran # (Auto) 0.01 (0.00-0.02) K/uL Sodium 140 (136-145) mmol/L Potassium 4.2 (3.5-5.1) mmol/L Chloride 107 (98-107) mmol/L Carbon Dioxide 28 (21-32) mmol/L Anion Gap 5 (3-11) BUN 15 (6-23) mg/dl Creatinine 0.87 (0.6-1.4) mg/dl Est Cr Clr Drug Dosing 82.6 ml/min Est GFR ( Amer) 100.6 ml/min Est GFR (Non-Af Amer) 86.8 ml/min BUN/Creatinine Ratio 17.2 (10-20) Glucose 115 H (70-99(Fasting)) mg/dl Calcium 8.8 (8.5-10.1) mg/dl 08/10/21 Range/Units 07:17 WBC (4.8-10.8) K/uL RBC (4.7-6.1) M/uL Hgb (14.0-18.0) g/dL Hct (42-52) % MCV (80-100) fL MCH (25-34) pg MCHC (32-36) g/dL RDW Std Deviation (36.4-46.3) fL RDW Coeff of Clarissa (11.5-14.5) % Plt Count (130-400) K/uL MPV (7.4-10.4) fL Immature Gran % (Auto) % Neut % (Auto) % Lymph % (Auto) % [place] % (Auto) % Eos % (Auto) % Baso % (Auto) % Neut # (Auto) (1.4-6.5) K/uL Lymph # (Auto) (1.2-3.4) K/uL [place] # (Auto) (0.11-0.59) K/uL Eos # (Auto) (0-0.5) K/uL Baso # (Auto) (0-0.2) K/uL Immature Gran # (Auto) (0.00-0.02) K/uL Sodium 139 (136-145) mmol/L Potassium 3.9 (3.5-5.1) mmol/L Chloride 108 H (98-107) mmol/L Carbon Dioxide 27 (21-32) mmol/L Anion Gap 4 (3-11) BUN 23 (6-23) mg/dl Creatinine 0.91 (0.6-1.4) mg/dl Est Cr Clr Drug Dosing 79.0 ml/min Est GFR ( Amer) 97.9 ml/min Est GFR (Non-Af Amer) 84.5 ml/min BUN/Creatinine Ratio 25.3 H (10-20) Glucose 94 (70-99(Fasting)) mg/dl Calcium 8.6 (8.5-10.1) mg/dl
--- NOTE | 2021-08-10 18:54 | Discharge Summary ---
Date of Service August 10, 2021 Admission HPI Per Admitting Provider 70-year-old male with past medical history significant for GERD and Mendez's esophagus presents with ongoing right knee pain and instability. He has failed conservative measures. His symptoms are interfering with his daily activities. He would like to proceed with surgical intervention. Patient denies headaches, sweats, fevers, chills, double vision, blurred vision, cough, sore throat, dysphagia, chest pain, sob, wheezing, n/v/d/c, numbness, tingling, fatigue, urinary symptoms, mood disorders. ROS positive for right knee pain and instability. Admission Exam Per Admitting Provider Constitutional: well developed and well nourished; no acute distress Eyes: PERRL, conjunctivae normal, anicteric sclerae ENMT: external ear and nose normal, oropharynx normal Neck: trachea midline, no thyromegaly Respiratory: normal respiratory effort, lungs clear to auscultation Cardiovascular: RRR, no murmur, no edema Musculoskeletal: Right knee: Active painful range of motion. Range of motion 5 to 115 degrees. Depression. He has mild joint effusion. Tenderness medial joint line. Is positive [place]'s, positive Daev's, positive anterior posterior drawer test. Stable valgus varus stress. Skin: no rashes, warm and dry Neurologic: patellar DTR's 2+ bilat, sensation intact Psychiatric: A+Ox3, euthymic affect Principal Diagnosis Right knee osteoarthritis, instability Discharge Exam Right knee Silverlon dressing intac. Mild drainage in window of dressing. Dressing to hemovac site intact with mild bloody drainage on gauze. toes mobile with good dorsiflexion. No calf tenderness. Able to do SLR. Distally n/v status and sensation intact. Constitutional well developed and well nourished; no acute distress Skin no rashes, warm and dry Psychiatric A+Ox3, euthymic affect Discharge Data Allergies Allergy/AdvReac Type Severity Reaction Status Date / Time No Known Allergies Allergy Verified 07/19/21 13:16 Consultations 08/08/21 05:00 Consult Hospitalist Routine Procedures Performed Operation Date: 08/08/21 07:15 Actual Procedures p Right Total Knee Arthroplasty(Right) - José Miguel Boyce MD Ordered Studies 08/08/21 05:00 US - OR guided needle placemen Routine Hospital Course (1) Primary osteoarthritis of right knee: Patient presented for same day admission following right total knee arthroplasty on 08/08/21. He tolerated procedure well. The Patient had an uneventful hospital course. Post-operatively, his activity was progressed and well tolerated. They participated in PT with ambulation distance of 250 feet. ROM of operative knee reached 81 degrees. Labs remained stable- lowest hemoglobin recorded: 11.4. Dr. Aimee Smith of medical service was consulted for medical management during admission. Pain controlled on oral medications. Please refer to daily progress notes and PT notes for complete details. After exam on 08/10/21, patient was felt to be stable for discharge home with home health PT. Patient will f/u in the office in about 2 weeks for further evaluation including x-rays and incision check, sooner if having any issues or concerns. POD 1 s/p Right TKA PT/OT protocols. WBAT. DVT prophylaxis - ASA bid, SCD's, DENI's Pain management as written. AM labs-hemoglobin drop to 11.4 from 14 preop this morning acute blood loss anemia due to dilutional effect vs surgical loss/hemovac drain. D/C planning-home with HHPT, plan on discharge today. Lab Results 08/09/21 08/09/21 08/10/21 Range/Units 06:00 06:00 07:17 WBC 12.73 H 7.26 (4.8-10.8) K/uL RBC 3.83 L 3.56 L (4.7-6.1) M/uL Hgb 12.3 L 11.4 L (14.0-18.0) g/dL Hct 35.5 L 33.4 L (42-52) % MCV 92.7 93.8 (80-100) fL MCH 32.1 32.0 (25-34) pg MCHC 34.6 34.1 (32-36) g/dL RDW Std Deviation 46.9 H 47.5 H (36.4-46.3) fL RDW Coeff of Clarissa 13.8 13.8 (11.5-14.5) % Plt Count 221 167 (130-400) K/uL MPV 9.0 8.8 (7.4-10.4) fL Immature Gran % (Auto) 0.1 % Neut % (Auto) 65.7 % Lymph % (Auto) 11.8 % [place] % (Auto) 17.2 % Eos % (Auto) 5.1 % Baso % (Auto) 0.1 % Neut # (Auto) 4.76 (1.4-6.5) K/uL Lymph # (Auto) 0.86 L (1.2-3.4) K/uL [place] # (Auto) 1.25 H (0.11-0.59) K/uL Eos # (Auto) 0.37 (0-0.5) K/uL Baso # (Auto) 0.01 (0-0.2) K/uL Immature Gran # (Auto) 0.01 (0.00-0.02) K/uL Sodium 140 (136-145) mmol/L Potassium 4.2 (3.5-5.1) mmol/L Chloride 107 (98-107) mmol/L Carbon Dioxide 28 (21-32) mmol/L Anion Gap 5 (3-11) BUN 15 (6-23) mg/dl Creatinine 0.87 (0.6-1.4) mg/dl Est Cr Clr Drug Dosing 82.6 ml/min Est GFR ( Amer) 100.6 ml/min Est GFR (Non-Af Amer) 86.8 ml/min BUN/Creatinine Ratio 17.2 (10-20) Glucose 115 H (70-99(Fasting)) mg/dl Calcium 8.8 (8.5-10.1) mg/dl 08/10/ Range/Units 07:17 WBC (4.8-10.8) K/uL RBC (4.7-6.1) M/uL Hgb (14.0-18.0) g/dL Hct (42-52) % MCV (80-100) fL MCH (25-34) pg MCHC (32-36) g/dL RDW Std Deviation (36.4-46.3) fL RDW Coeff of Clarissa (11.5-14.5) % Plt Count (130-400) K/uL MPV (7.4-10.4) fL Immature Gran % (Auto) % Neut % (Auto) % Lymph % (Auto) % [place] % (Auto) % Eos % (Auto) % Baso % (Auto) % Neut # (Auto) (1.4-6.5) K/uL Lymph # (Auto) (1.2-3.4) K/uL [place] # (Auto) (0.11-0.59) K/uL Eos # (Auto) (0-0.5) K/uL Baso # (Auto) (0-0.2) K/uL Immature Gran # (Auto) (0.00-0.02) K/uL Sodium 139 (136-145) mmol/L Potassium 3.9 (3.5-5.1) mmol/L Chloride 108 H (98-107) mmol/L Carbon Dioxide 27 (21-32) mmol/L Anion Gap 4 (3-11) BUN 23 (6-23) mg/dl Creatinine 0.91 (0.6-1.4) mg/dl Est Cr Clr Drug Dosing 79.0 ml/min Est GFR ( Amer) 97.9 ml/min Est GFR (Non-Af Amer) 84.5 ml/min BUN/Creatinine Ratio 25.3 H (10-20) Glucose 94 (70-99(Fasting)) mg/dl Calcium 8.6 (8.5-10.1) mg/dl (2) Instability of right knee joint: Total Time Total Time Spent Total Time Spent (In Minutes): 20 Discharge Plan Discharge Items Patient Disposition: Home - Home Health Services Reason For Visit: Right Knee Osteoarthritis Discharge Diagnosis: Right knee osteoarthritis, instability Activity: Per Instructions section Non-emergency contact: Surgeon Call non-emergency contact if: you have any medication questions, your pain is not controlled, your pain is concerning for you, you have a fever, your temperature is above 101, your wound has increased redness and your wound has increased drainage Follow-up/Referrals: [facility] [Outside] (as per surgeon's office ) Yolanda Couch PA-C [Primary Care Provider] - Diet: Regular Addtl Attending Provider Instructions: ACTIVITY RECOMMENDATIONS: SELF CARE INSTRUCTIONS AFTER TOTAL KNEE REPLACEMENT A. You may need to continue a physical therapy program after discharge from the hospital. There are several options available to you. Your doctor will assist you in selecting the best one for you. 1. An out-patient facility 2 to 3 times a week for therapy or home therapy. 2. Continue working on all exercises taught to you in the hospital. Your goals should be to increase bending of your knee to 90 degrees and beyond and to fully straighten your knee. B. You may progress at your own pace from walking with a walker or crutches to a cane; then to no assistive devices. C. Make walking a part of your daily routine. Be up as much as comfortable with rest periods throughout the day. Rest with leg elevation is very important. Use the ice wrap frequently for the first 3-4 weeks. D. There are no restrictions on activities. You may ride in a car, shop, participate in crime prevention worker and all social activities. E. Wear the long elastic stockings (DENI hose) 20 hours a day for 2 weeks after surgery. They can be removed several times a day for laundering and for a bath. F. You may shower, no tub baths until cleared by your doctor. SPECIAL CARE INSTRUCTIONS: VERY IMPORTANT TO READ AND REVIEW A. There are a few signs you need to watch for after you are home. Call [facility] if you notice any of the followin. Increased severe knee pain. Some pain is expected especially when you exercise. 2. Increased swelling in your leg or knee; pain or swelling of the calf muscle in either lower leg. 3. Any fluid drainage from the incision. 4. Shortness of breath or chest pain. B. Please call [facility] at if you have any concerns or questions about your operation or recovery. The doctor or his nurse will return your call promptly. C. You must take antibiotics before dental work, bladder, bowel or other surgery. Your doctor will provide you with a permanent care to carry describing this precaution. IMPORTANT: * REMEMBER TO TAKE ASPIRIN, 81 MG, TWICE DAILY FOR 4 WEEKS UNLESS OTHERWISE DIRECTED. THIS IS YOUR BLOOD THINNER. * HIGH RISK PATIENTS MAY BE PRESCRIBED A STRONGER BLOOD THINNER. THIS WILL BE PROVIDED AT DISCHARGE. * CALL IF INCREASED PAIN, REDNESS, DRAINAGE OR FEVER GREATER THAT 101. * WEAR DENI HOSE 20 HOURS PER DAY FOR 2 WEEKS. * This is a large adhesive bandage that contains silver ions. This helps your incision heal by fighting off bacteria and protecting it from the outside environment. You are permitted to shower with this dressing. This will remain on your incision for 7 days and then should be removed. Some visible blood or drainage through the dressing window is normal. If there is significant drainage or leaking noted before the 7 days notify your doctor's office immediately. Once removed, keep incision clean and dry. If there is any drainage or redness noted, please call your surgeon. IF INCISION IS LEAKING THROUGH DRESSING, CALL THE OFFICE . FOLLOW UP VISIT: If appointment is not already scheduled: Please call [facility] to make a follow-up appointment for 2 weeks after your surgery at . Stand-Alone Forms: My [facility], Opioid Pain Management, Smoking Cessation Medications and DC Order Prescriptions: New celecoxib [Celebrex] 200 mg Capsule 200 mg PO BID Qty: 60 RF: 0 aspirin 81 mg Tablet,Delayed Release (Dr/Ec) 81 mg PO BID Qty: 60 RF: 0 acetaminophen [Tylenol Extra Strength] 500 mg Tablet 1,000 mg PO Q8 Qty: 60 RF: 0 oxycodone 5 mg Tablet 5 - 10 mg PO .Q4h-6h MDD 6 PRN (Reason: pain) Qty: 30 RF: 0 cefadroxil 500 mg capsule 500 mg PO BID Qty: 28 RF: 0 ondansetron HCl 4 mg tablet 4 mg PO Q8H PRN (Reason: nausea and vomiting) Qty: 20 RF: 0 Continued multivitamin Tablet 1 tab PO QAM RF: 0 omeprazole 20 mg Capsule,Delayed Release(Dr/Ec) 40 mg PO QAM RF: 0 Calcium 600 + D(3) 600 mg calcium- 200 unit Capsule 1 cap PO QAM RF: 0 Discontinued aspirin 81 mg tablet,delayed release (DR/EC) 81 mg PO BID Qty: 60 RF: 0 Discharge Orders: Discharge Order (Routine); Ordered 08/10/21 Ordered By: Jack Sánchez/Other Patient Handouts: DVT Post Op Prevention Admission Data Admit Date/Time: 08/08/21 10:25 Attending Provider: José Miguel Boyce Admit Provider: José Miguel Boyce Primary Care Provider: Yolanda Couch Other Providers: [employer],[facility] ; Andrew Borrero Other Interventions: Discharge Summary Assessment (RN) Last Done: 08/10/21 11:01
== END 2021-08-10 12:07 | disposition home health service (06) ==
LOC: 3E 05:04 → ASU 05:04